=== PATIENT | female | born 1965 | race Caucasian/White ===

== ENCOUNTER 2018-05-23 06:50 | Day surgery (SDC) | payer BC ==
[~2018-05-23] VITALS: Ht 152.4 cm; Wt 54.4 kg
[~2018-05-23 06:50] MED LIST: ESTRACE0.5 MG TD; NORCO 5-325 TA1 EACH PO; PROMETRIUM200 MG PO; VALTREX500 MG PO; YUVAFEM10 MCG; ZOLOFT50 MG PO
--- NOTE | 2018-05-23 09:16 | NUR ---
05/23/18 0916 Marina Hernandez 0906 PT ARRIVED IN PACU SLEEPY WITH NO C/O'S.
--- NOTE | 2018-05-23 09:35 | NUR ---
PT IS BACK TO FROM PACU. SHE IS SLEEPY UPON ARRIVAL, BUT QUICKLY WAKES UP TO ANSWER QUESTIONS. WATER ON BEDSIDE TABLE. CALL LIGHT WITHIN REACH. NO ADDITIONAL NEEDS AT THIS TIME. WILL CONTINUE TO MONITOR.
--- NOTE | 2018-05-23 10:40 | NUR ---
PT IS SLEEPING UPON ENTERING THE ROOM. SHE IS EASY TO WAKE UP WHEN SPOKEN TOO. DENIES ANY PAIN. CALL LIGHT WITHIN REACH. TOLERATING SIPS OF WATER. NO ADDITIONAL NEEDS AT THIS TIME. WILL CONTINUE TO MONITOR.
--- NOTE | 2018-05-23 11:10 | NUR ---
PT ALERT, ORIENTED AND SOMEWHAT APPREHENSIVE I ENTERED HER RM. WE BEGAN TO VISIT, HER ANXIOUSNESS EASED A BIT. SHE IS NEW TO THE AREA, AND FELT POSITIVE ABOUT HER DR, AND HAD NO QUESTIONS REGARDING TODAY. EXTENDED A BLESSING, WILL FOLLOW NEEDED
--- NOTE | 2018-05-23 11:32 | NUR ---
PT INDICATES THAT SHE WOULD LIKE TO GO HOME AT THIS TIME. SHE HAS MET DC CRITERIA. WILL START DC PROCESS
--- NOTE | 2018-05-23 11:52 | NUR ---
PT IS GIVEN VERBAL DC INSTRUCTIONS. SHE VERBALIZES UNDERSTANDING AND ASKS QUESTIONS THAT ARE ANSWERED. SHE IS TAKEN TO THE VEHICLE VIA WC, SHE TRANSFERS HERSELF WITHOUT ISSUE.
--- NOTE | 2018-06-20 09:19 | OR ---
[facility] [address] [facility] [place], [place] [address] Signed DATE OF OPERATION: 05/23/2018 SURGEON: Justina Kam MD PREOPERATIVE DIAGNOSIS: Postmenopausal bleeding, endometrial polyps. POSTOPERATIVE DIAGNOSIS: Postmenopausal bleeding, endometrial polyps, pending pathology. PROCEDURE: Hysteroscopy dilation and curettage, resection of polyps. ANESTHESIA: General LMA. ESTIMATED BLOOD LOSS: Minimal. DRAINS: None. INDICATIONS AND FINDINGS: The patient is a 52-year-old female, 2, para 2, who has been having recent abnormal bleeding. She is on hormone replacement. Hysterosonogram revealed probable polyps. EMB was benign. At the time of surgery, exam under anesthesia revealed a normal-size uterus. The cavity did sound to 9 cm. There were multiple small polyps visible. DESCRIPTION OF PROCEDURE: The patient was prepped and draped in the dorsal lithotomy position. A weighted speculum was placed. The anterior lip of the cervix was visualized and grasped with a single-tooth tenaculum. The cavity sounded to 9 cm. The endocervical canal was then dilated to a #8 dilator. The MyoSure device was then placed. The cavity was evaluated and the MyoSure device was removed and a D and C was done with a small curette. A small amount of tissue was found. The hysteroscope was re-introduced and the cavity re-evaluated. There continued to be multiple small polyps. At that point, the MyoSure LITE was used and this was used to remove the multiple polyps. Following this, the instruments were removed from the vagina. There was no evidence of ongoing bleeding from the cervix. Electronically Signed By: JUSTINA KAM MD 06/20/18 0919 PATIENT NAME: DANIELLE COOPER OPERATIVE REPORT DATE OF : 63 REPORT #: [id number] PHYSICIAN: JUSTINA KAM MD PCP: NO PRIMARY CARE PHYSICIAN REPORT IS CONFIDENTIAL AND NOT TO BE RELEASED WITHOUT AUTHORIZATION [address], [place] [address] Signed The patient was then taken to the recovery room in good condition. Justina Kam MD PJW/MODL /[id number] Copies: ~ Electronically Signed By: JUSTINA KAM MD 06/20/18 0919 PATIENT NAME: DANIELLE COOPER OPERATIVE REPORT DATE OF : 63 REPORT #: [id number] PHYSICIAN: JUSTINA KAM MD PCP: NO PRIMARY CARE PHYSICIAN REPORT IS CONFIDENTIAL AND NOT TO BE RELEASED WITHOUT AUTHORIZATION
== END 2018-05-23 11:45 | disposition home or self-care (01) ==
LOC: DS 06:50
PROVIDERS: Obstetrics & Gynecology
PROC: 0UDB7ZZ Extraction of Endometrium, Via Natural or Artificial Opening (ICD-10-PCS; 2018-05-23)
PROC: 0UJD8ZZ Inspection of Uterus and Cervix, Via Natural or Artificial Opening Endoscopic (ICD-10-PCS; 2018-05-23)
PROC: 0UB97ZZ Excision of Uterus, Via Natural or Artificial Opening (ICD-10-PCS; principal; 2018-05-23 08:15)
DX: N84.0 Polyp of corpus uteri (principal); N95.2 Postmenopausal atrophic vaginitis; Z79.899 Other long term (current) drug therapy
CPT/HCPCS: 00952; J0461; J1100; J1885; J2250; J2405; J2704; J2765; J3010; J7120

== ENCOUNTER 2018-07-28 09:23 | Emergency (ER) | payer BC ==
[~2018-07-28] VITALS: Ht 152.4 cm; Wt 54.4 kg
--- OUTSIDE RECORDS SUMMARY | ~2018-07-28 | XMS | Clinical Summary ---
Demographics + + + | Address | [address] | | | [place] [address] | + + + | Home Phone | | + + + | Preferred Language | Unknown | + + + | Marital Status | Single | + + + | Scientologist Affiliation | Unknown | + + + | Race | Unknown | + + + | Ethnic Group | Unknown | + + + Author + + + | Author | [facility] | + + + | Organization | [facility] | + + + | Address | Unknown | + + + | Phone | Unavailable | + + + Support + + +---------+ + | Name | Relationship | Address | Phone | + + +---------+ + | No,Contacts | ECON | Unknown | | + + +---------+ + Care Team Providers + +------+ + | Care Rug Dyer Helper Name | Role | Phone | + +------+ + PP | Unavailable | + +------+ + Allergies Not on File Current Medications + + +--------+---------+------+------+-------+ | Prescription | Sig. | Disp. | Refills | Star | End | Statu | | | | | | t | Date | s | | | | | | Date | | | + + +--------+---------+------+------+-------+ | valACYclovir | Take 1 tablet by | 90 | 3 | 08/0 | | Activ | | (VALTREX) 500 MG | mouth daily. | tablet | | 7/20 | | e | | tabletIndications: | | | | 18 | | | | HSV infection | | | | | | | + + +--------+---------+------+------+-------+ | estradiol | Insert vaginally | 8 | 12 | 08/0 | | Activ | | (VAGIFEM) 10 MCG | twice weekly | tablet | | 11/10 | | e | | tabletIndications: | | | | 18 | | | | Vaginal dryness | | | | | | | + + +--------+---------+------+------+-------+ | sertraline | TAKE 1 TABLET BY | 90 | 2 | 12/0 | | Activ | | (ZOLOFT) 50 MG | MOUTH ONCE DAILY | tablet | | 07/11 | | e | | tabletIndications: | | | | 18 | | | | Anxiety | | | | | | | + + +--------+---------+------+------+-------+ Active Problems No known active problems Family History + + +------+ + | [...] | | | + +-------+ +--------+------+ + +---+---+---+ | Smokeless Tobacco: | | | | | Never Used | | | | + +---+---+---+ + + +---------+ + | Alcohol Use | Drinks/We | oz/Week | Comments | | | ek | | | + + +---------+ + | Yes | | | | + + +---------+ + + + + | Sex Assigned at | Date Recorded | | | | + + + | Not on file | | + + + Last Filed Vital Signs + + + + | Vital Sign | Reading | Time Taken | + + + + | Blood Pressure | 88/46 | 11/28/2017 10:53 AM PDT | + + + + | Pulse | 53 | 11/28/2017 10:53 AM PDT | + + + + | Temperature | - | - | + + + + | Respiratory Rate | - | - | + + + + | Oxygen Saturation | 99% | 11/28/2017 10:53 AM PDT | + + + + | Inhaled Oxygen | - | - | | Concentration | | | + + + + | Weight | 51.5 kg (113 lb 9.6 | 11/28/2017 10:53 AM PDT | | | oz) | | + + + + | Height | 152.4 cm (5') | 11/28/2017 10:53 AM PDT | + + + + | Body Mass Index | 22.19 | 11/28/2017 10:53 AM PDT | + + + + Plan [...] Screening | 5 | | | | (Mammogram) | | | | + + + + + | Colon Cancer | | | | | Screening | 5 | | | | (Colonoscopy) | | | | + + + + + | Vaccine: Zoster (1 | | | | | of 2) | 5 | | | + + + + + | Vaccine: Influenza | | | | | (Season Ended) | 9 | | | + + + + + Results Not on filefrom Last 3 Months Insurance +---------+--------+ +------+-------+ + | Payer | Benefi | Subscriber | Type | Phone | Address | | | t Plan | ID | | | | | | / | | | | | | | Group | | | | | +---------+--------+ +------+-------+ + | PREMERA | PREMER | [id number] | | | [address] [address] | | | A | [address] | | | [place], [place] | | | [place] | | | | [phone] | | | [place] | | | | | +---------+--------+ +------+-------+ + + +--------+ +--------+ + + | Guarantor Name | Accoun | Relation to | Date | Phone | Billing Address | | | t Type | Patient | of | | | | | | | | | | + +--------+ +--------+ + + | DANIELLE KOROMA | Person | Self | [birth year] | Home: | [address] | | | al/Fam | | 1966 | [phone] | [place] | | | pilar | | | [phone] | + +--------+ +--------+ + +"
--- OUTSIDE RECORDS SUMMARY | ~2018-07-28 | XMS | Clinical Summary ---
Demographics + + + | Address | [address] | | | [place] [address] | + + + | Home Phone | | + + + | Preferred Language | Unknown | + + + | Marital Status | Single | + + + | Christianity Affiliation | Unknown | + + + | Race | Unknown | + + + | Ethnic Group | Unknown | + + + Author + + + | Author | [facility] | + + + | Organization | [facility] | + + + | Address | Unknown | + + + | Phone | Unavailable | + + + Support + + +---------+ + | Name | Relationship | Address | Phone | + + +---------+ + | No,Contacts | ECON | Unknown | | + + +---------+ + Care Team Providers + +------+ + | Care Fine Grade Operator Name | Role | Phone | + [...] +------+-------+ + | PREMERA | PREMER | [id number] | | | [address] [address] | | | A | [address] | | | [place], [place] | | | [place] | | | | [phone] | | | [place] | | | [...] | | al/Fam | | 1966 | [phone] | [place] | | | pilar | | | 2011 | [phone] | + +--------+ +--------+ + +"
--- OUTSIDE RECORDS SUMMARY | 2018-07-28 09:26 | XMS ---
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 Heriberto has no Care Guidelines for this patient. Michael VISIT COUNT (12 MO.) 2 [facility] TOTAL 2 NOTE: Visits indicate total known visits. ED/UCC VISIT TRACKING (12 MO.) 07/28/2018 09:23 [facility] [place] TYPE: Emergency COMPLAINT: - DIZZY 04/15/2018 22:12 [facility] [place] TYPE: Emergency COMPLAINT: - LEFT FOOT INJURY DIAGNOSES: - Striking against or struck by other objects, initial encounter - Pain in left toe(s) - Nondisplaced fracture of proximal phalanx of left lesser toe(s), initial encounter for closed fracture - Other fpc (current) drug therapy INPATIENT VISIT TRACKING (12 MO.) No inpatient visits to display in this time frame [email or web address]
[2018-07-28] MEDS ORDERED: MECLIZINE HCL25 MG PO (11:42)
[2018-07-28] MEDS ORDERED: ONDANSETRON ODT8 MG PO (11:42)
== END 2018-07-28 11:50 | disposition home or self-care (01) ==
LOC: ED 09:23
DX: H83.09 Labyrinthitis, unspecified ear (principal); Z87.891 Personal history of nicotine dependence; Z79.899 Other long term (current) drug therapy
CPT/HCPCS: 99283

== ENCOUNTER 2019-02-15 02:59 | Inpatient (IN) | payer BC ==
[~2019-02-15] VITALS: Ht 152.4 cm; Wt 50.9 kg
--- NOTE | ~2019-02-15 | DS ---
[facility] [address] [place], [place] [address] Draft ADMISSION DATE: 02/15/2019 DISCHARGE DATE: 02/17/2019 FINAL DIAGNOSIS: Acute suppurative appendicitis. PROCEDURE: Laparoscopic appendectomy. 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 She stays in excellent shape by exercising and lifting weights. Over three days, she was having right-sided abdominal pain. It seemed to be getting worse. She had some nausea, vomiting as well. She had been to the urgent care clinic the day prior to admission. Due to her ongoing symptoms, she presented to the emergency room. She was tender on the right side with a white count of 10.5. The CT scan showed an appendicolith with a dilated appendix and some trent-appendiceal inflammation with the appendix in the right gutter up near the edge of the liver. Consequently, I have been asked to admit her overnight as a general surgeon on-call. HOSPITAL COURSE: Danielle was admitted as above and started on IV med, IV fluids, antibiotics, and her pain medication. I met with Danielle and her friend early in the morning. I later met with Danielle and her mother in our day surgery area. Later that day, we had added Danielle on with respect to her appendicitis. She underwent an uncomplicated laparoscopic appendectomy. Indeed, the appendix was clear up next to the gallbladder. She did well both intraop and postop. She was a little dehydrated coming in, but she caught up in due time and continued IV fluids and p.o. intake. We left her on the cefepime and Flagyl while here in the hospital. Last night, her IV was bothering her, so we discontinued IV and the antibiotics last night. She has been taking a regular diet just fine with plenty of flatus. She has been using hydrocodone for pain control. Her abdomen is still mildly distended. She has a little bit of edema and her skin on the right side of her abdomen down on the proximal thigh. There was a moderate amount of reactive fluid in her abdomen when we did her surgery. All incisions are healing well without any local signs or symptoms of infection. Due to her progress, then we are going to be discharging her to home. DISCHARGE PLANS AND MEDICATIONS: Danielle is going to be discharged to home with a prescription for [place] 5/325, 1-2 tablets p.o. q.6 hours p.r.n. for severe postoperative pain. We will dispense 35 tablets with no refills. She can purchase Tylenol, ibuprofen, or naproxen over the PATIENT NAME: DANIELLE COOPER DISCHARGE SUMMARY DATE OF : 63 REPORT #: [id number] PHYSICIAN: JEROD BAILEY MD PCP: NO PRIMARY CARE PHYSICIAN REPORT IS CONFIDENTIAL AND NOT TO BE RELEASED WITHOUT AUTHORIZATION [address] [address] Draft counter for cegd-eg-wubkwhzu postoperative pain as needed. She is already taking her chronic oral medications now. She can continue that at home. She will follow a regular diet at home. She is not to do any heavy pushing, pulling, or lifting over 20 pounds. She likes to lift weights for exercise. We went over that in detail. She really should not lift more than about 20 pounds for a month, and then after that, 50 pounds and then no restrictions. There is a 1% chance she could develop a hernia particularly at the umbilicus after surgery. I reviewed that with her in detail. If she tears the sutures through, of course it would be quite obvious at that time. She can continue her showering and bathing as usual. 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 She can lay down and so forth. I will see her back in my office in a week to 10 days for followup. She has expressed understanding and agrees above plan. Jerod Bailey MD ALB/MODL /[id number] cc: MD Aurea Amaro NP [place], [place] Patricia J Winn, MD Copies: KARLA GARNER ANDREW L MD WINN, PATRICIA J MD ~ PATIENT NAME: DANIELLE COOPER DISCHARGE SUMMARY DATE OF : 63 REPORT #: [id number] PHYSICIAN: JEROD BAILEY MD PCP: NO PRIMARY CARE PHYSICIAN REPORT IS CONFIDENTIAL AND NOT TO BE RELEASED WITHOUT AUTHORIZATION
--- OUTSIDE RECORDS SUMMARY | ~2019-02-15 | XMS | Clinical Summary ---
Demographics + + + | Address | [address] | | | [place] [address] | + + + | Home Phone | | + + + | Preferred Language | Unknown | + + + | Marital Status | Single | + + + | Restoration Affiliation | Unknown | + + + | Race | Unknown | + + + | Ethnic Group | Unknown | + + + Author + + + | Author | [facility] | | | and [place] | + + + | Organization | [facility] | | | and [place] | + + + | Address | Unknown | + + + | Phone | Unavailable | + + + Support + + +---------+ + | Name | Relationship | Address | Phone | + + +---------+ + | No,Contacts | ECON | Unknown | | + + +---------+ + Care Team Providers + +------+ + | Care Warehouse Administrator Name | Role | Phone | + +------+ + PCP | Unavailable | + +------+ + Allergies Not on File Medications + + + +---------+------+------+-------+ | Medication | Sig | Dispensed | Refills | Star | End | Statu | | | | | | t | Date | s | | | | | | Date | | | + + + +---------+------+------+-------+ | estradiol | Insert vaginally | 8 | 12 | 08/0 | | Activ | | (VAGIFEM) 10 mcg | twice weekly | tablet | | 7/20 | | e | | vaginal tablet | | | | 18 | | | + + + +---------+------+------+-------+ | sertraline | TAKE 1 TABLET BY | 90 | 2 | 12/0 | | Activ | | (ZOLOFT) 50 mg | MOUTH ONCE DAILY | tablet | | 3/20 | | e | | tablet | | | | 18 | | | + + + +---------+------+------+-------+ | valACYclovir | TAKE 1 TABLET BY | 30 | 11 | 08/1 | | Activ | | (VALTREX) 500 mg | MOUTH ONCE DAILY | tablet | | 2/20 | | e | | tablet | | | | 19 | | | + + + +---------+------+------+-------+ Active Problems Not on file Encounters +--------+ + + + + | Date | Type | Specialty | Care Team | Description | +--------+ + + + + | 12/03/ | Orders Only | Obstetrics and | Aurea Glasgow ARNP | | | 2019 | | Gynecology | | | +--------+ + + + + from Last 3 Months Family History + + +------+ + | Medical History | Relation | Name | Comments | + + +------+ + | Thyroid disease | Mother | | | + + +------+ + + +------+ + + | Relation | Name | Status | Comments | + +------+ + + | Father | | | | + +------+ + + | Maternal Grandfather | | | | + +------+ + + | Maternal Grandmother | | | | + +------+ + + | Mother | | Alive | | + +------+ + + | Mother | | | | + +------+ + + | Paternal Grandfather | | | | + +------+ + + | Paternal Grandmother | | | | + +------+ + + Social History + +-------+ +--------+------+ | Tobacco Use | Types | Packs/Day | Years | Date | | | | | Used | | + +-------+ +--------+------+ | Never Smoker | | | | | + +-------+ +--------+------+ + + + | Sex Assigned at | Date Recorded | | | | + + + | Not on file | | + + + + + + + | Job Start Date | Occupation | Industry | + + + + | Not on file | Not on file | Not on file | + + + + + + + + | Travel History | Travel Start | Travel End | + + + + + + | No recent travel history available. | + + Last Filed Vital Signs + + + + | Vital Sign | Reading | Time Taken | + + + + | Blood Pressure | 88/46 | 11/28/2017 1055 PDT | + + + + | Pulse | 53 | 11/28/2017 1055 PDT | + + + + | Temperature | - | - | + + + + | Respiratory Rate | - | - | + + + + | Oxygen Saturation | - | - | + + + + | Inhaled Oxygen | - | - | | Concentration | | | + + + + | Weight | 51.5 kg (113 lb 9.6 | 11/28/20171054 PDT | | | oz) | | + + + + | Height | 152.4 cm (5') | 11/28/20171054 PDT | + + + + | Body Mass Index | 22.19 | 11/28/20171054 PDT | + + + + Plan of Treatment + + + + + | Health Maintenance | Due Date | Last Done | Comments | + + + + + | Hepatitis C | | | | | Screening | 5 | | | + + + + + | Vaccine: | | | | | Dtap/Tdap/Td (1 - | 4 | | | | Tdap) | | | | + + + + + | Cervical Cancer | | | | | Screening (Pap) | 5 | | | + + + + + | Breast Cancer | | | | | Screening | 0 | | | + + + + + | Colorectal Cancer | | | | | Screening | 5 | | | | (Colonoscopy) | | | | + + + + + | Vaccine: Zoster (1 | | | | | of 2) | 5 | | | + + + + + | Vaccine: Influenza | | | | | (#1) | 9 | | | + + + + + Results Not on filefrom Last 3 Months"
--- OUTSIDE RECORDS SUMMARY | ~2019-02-15 | XMS | Encounter Summary ---
Demographics + + + | Address | [address] | | | [place] [address] | + + + | Home Phone | | + + + | Preferred Language | Unknown | + + + | Marital Status | Single | + + + | Gnosticism Affiliation | Unknown | + + + | Race | Unknown | + + + | Ethnic Group | Unknown | + + + Author + + + | Author | [facility] | | | and [place] | + + + | Organization | [facility] | | | [...] Team Providers + +------+ + | Care Vp Platforms Name | Role | Phone | + +------+ + PCP | Unavailable | + +------+ + Encounter Details +--------+ + + + + | Date | Type | Department | Care Team | Description | +--------+ + + + + | 12/03/ | Orders Only | [facility] | Aurea Glasgow ARNP | | | 2019 | | [facility] | [address] | | | | | [facility] | [address], | | | | | [address] | [place] [address] | | | | | [address], | [phone] | | | | | [place] [address] | | | | | | [phone] | | | +--------+ + + + + Social History + +-------+ +--------+------+ [...] recent travel history available. | + + documented as of this encounter Plan of Treatment Not on filedocumented as of this encounter Visit Diagnoses Not on filedocumented in this encounter"
--- OUTSIDE RECORDS SUMMARY | ~2019-02-15 | XMS | Clinical Summary ---
Demographics + + + | Address | [address] | | | [place] [address] | + + + | Home Phone | | + + + | Preferred Language | Unknown | + + + | Marital Status | Single | + + + | Gnosticism Affiliation | Unknown | + + + | Race | Unknown | + + + | Ethnic Group | Unknown | + + + Author + + + | Author | [facility] | | | and [place] | + + + | Organization | [facility] | | | and [...] Team Providers + +------+ + | Care Painter Helper Name | Role | Phone | [...]
--- OUTSIDE RECORDS SUMMARY | ~2019-02-15 | XMS | Encounter Summary ---
Demographics + + + | Address | [address] | | | [place] [address] | + + + | Home Phone | | + + + | Preferred Language | Unknown | + + + | Marital Status | Single | + + + | Cheondoism Affiliation | Unknown | + + + | Race | Unknown | + + + | Ethnic Group | Unknown | + + + Author + + + | Author | [employer] (Historical as of | | | 12-08-18) | + + + | Organization | [facility] [employer] (Historical as of | | | 12-08-18) | + + + | Address | Unknown | + + + | Phone | Unavailable | + + + Support + + +---------+ + | Name | Relationship | Address | Phone | + + +---------+ + | No,Contacts | ECON | Unknown | | + + +---------+ + Care Team Providers + +------+ + | Care Automatic Line Set Up Mechanic Name | Role | Phone | + +------+ + PCP | Unavailable | + +------+ + Reason for Visit + + + | Reason | Comments | + + + | Medication Refill | | + + + Encounter Details +--------+--------+ + + + | Date | Type | Department | Care Team | Description | +--------+--------+ + + + | 11/30/ | Refill | [facility] | Delmar Aguilar, | HSV infection | | 2019 | | Associated | [address] | | | | | [facility] | [address] [place], | | | | | [address], | [place] [address] | | | | | [address] [place], | [phone] | | | | | [place] [address] | | | | | | [phone] | | | +--------+--------+ + + + Social History + +-------+ [...] on file | | + + + as of this encounter Plan of Treatment Not on fileas of this encounter Visit Diagnoses + + | Diagnosis | + + | HSV infection | + + | Herpes simplex without mention of complication | + +"
--- OUTSIDE RECORDS SUMMARY | ~2019-02-15 | XMS | Encounter Summary ---
Demographics + + + | Address | [address] | | | [place] [address] | + + + | Home Phone | | + + + | Preferred Language | Unknown | + + + | Marital Status | Single | + + + | Mu-Ism Affiliation | Unknown | + + + | Race | Unknown | + + + | Ethnic Group | Unknown | + + + Author + + + | Author | [employer] (Historical as of | | | 12-08-18) | + + + | Organization | [facility] [employer] (Historical as of | | | 12-08-18) [...] Team Providers + +------+ + | Care Race Engine Builder Name | Role | Phone | + [...] + + | 11/30/ | Refill | [facility] | Delmar Aguilar, | HSV infection | | 2019 | | Associated | [address] | | | | | [facility] | [address] [place], | | | | | [address], | [place] [address] | | | | | [address] [place], | [phone] | | | | | [place] [address] | | | | | | [phone] | | | +--------+--------+ + + + [...]
--- OUTSIDE RECORDS SUMMARY | ~2019-02-15 | XMS | Encounter Summary ---
Demographics + + + | Address | [address] | | | [place] [address] | + + + | Home Phone | | + + + | Preferred Language | Unknown | + + + | Marital Status | Single | + + + | Yarsani Affiliation | Unknown | + + + | Race | Unknown | + + + | Ethnic Group | Unknown | + + + Author + + + | Author | [facility] | | | and [place] | + + + | Organization | [facility] | | | [...] Team Providers + +------+ + | Care Loss Prevention Representative Name | Role | Phone | + +------+ + PCP | Unavailable | + +------+ + Encounter Details +--------+ + + + + | Date | Type | Department | Care Team | Description | +--------+ + + + + | 12/03/ | Orders Only | [facility] | Aurea Glasgow ARNP | | | 2019 | | ASSOCIATED | [address] | | | | | [facility] | [address] [place], | | | | | [address] | [place] [address] | | | | | [address] [place], | [phone] | | | | | [place] [address] | | | | | | [phone] | | | +--------+ + + + [...]
--- OUTSIDE RECORDS SUMMARY | ~2019-02-15 | XMS | Clinical Summary ---
Demographics + + + | Address | [address] | | | [place] [address] | + + + | Home Phone | | + + + | Preferred Language | Unknown | + + + | Marital Status | Single | + + + | Restorationist Affiliation | Unknown | + + + | Race | Unknown | + + + | Ethnic Group | Unknown | + + + Author + + + | Author | [employer] (Historical as of | | | 12-08-18) | + + + | Organization | [facility] [employer] (Historical as of | | | 12-08-18) [...] Team Providers + +------+ + | Care Sewing Machine Tester Name | Role | Phone | + [...] | 3/20 | | e | | tabletIndications: | | | | 18 | | | | Anxiety | | | | | | | + + +--------+---------+------+------+-------+ | valACYclovir | TAKE 1 TABLET BY | 30 | 11 | 08/1 | | Activ | | (VALTREX) 500 MG | MOUTH ONCE DAILY | tablet | | 2/20 | | e | | tabletIndications: | | | | 19 | | | | HSV infection | | | | | | | + + +--------+---------+------+------+-------+ Active Problems No known active problems Encounters +--------+--------+ + + + | Date | Type | Specialty | Care Team | Description | +--------+--------+ + + + | 11/30/ | Refill | | Delmar Aguilar, | HSV infection | | 2019 | | | PA-C | | +--------+--------+ + + + from Last 3 Months [...] +------+-------+ + | PREMERA | PREMER | [id number] | | | [address] [address] | | | A | [address] | | | [place] | | | [place] | | | | [phone] | | | [place] | | | [...] Self | [birth year] | Home: | [address] | | | al/Fam | | 1966 | [phone] [place] | | | [place] | | | [phone] | [phone] | + +--------+ +--------+ + +"
--- OUTSIDE RECORDS SUMMARY | ~2019-02-15 | XMS | Encounter Summary ---
Demographics + + + | Address | [address] | | | [place] [address] | + + + | Home Phone | | + + + | Preferred Language | Unknown | + + + | Marital Status | Single | + + + | Episcopalian Affiliation | Unknown | + + + | Race | Unknown | + + + | Ethnic Group | Unknown | + + + Author + + + | Author | [facility] | | | and [place] | + + + | Organization | [facility] | | | and [...] Team Providers + +------+ + | Care Moss Picker Name | Role | Phone | + +------+ + PCP | Unavailable | + +------+ + Encounter Details +--------+ + + + + | Date | Type | Department | Care Team | Description | +--------+ + + + + | 12/03/ | Orders Only | [facility] | Aurea Glasgow ARNP | | | 2019 | | ASSOCIATED | [address] | | | | | [facility] | [address] [place], | | | | | [address] | [place] [address] | | | | | [address] [place], | [phone] | | | | | [place] [address] | | | | | | [phone] | | | +--------+ + + + [...]
--- OUTSIDE RECORDS SUMMARY | ~2019-02-15 | XMS | Clinical Summary ---
Demographics + + + | Address | [address] | | | [place] [address] | + + + | Home Phone | | + + + | Preferred Language | Unknown | + + + | Marital Status | Single | + + + | Catholic Affiliation | Unknown | + + + | Race | Unknown | + + + | Ethnic Group | Unknown | + + + Author + + + | Author | [facility] | | | and [place] | + + + | Organization | [facility] | | | [...] Team Providers + +------+ + | Care Print Shop Chief Clerk Name | Role | Phone | + [...]
--- OUTSIDE RECORDS SUMMARY | ~2019-02-15 | XMS | Clinical Summary ---
Demographics + + + | Address | [address] | | | [place] [address] | + + + | Home Phone | | + + + | Preferred Language | Unknown | + + + | Marital Status | Single | + + + | Caodaism Affiliation | Unknown | + + + | Race | Unknown | + + + | Ethnic Group | Unknown | + + + Author + + + | Author | [employer] (Historical as of | | | 12-08-18) | + + + | Organization | [facility] [employer] (Historical as of | | | 12-08-18) [...] Team Providers + +------+ + | Care Launch Leader Name | Role | Phone | + [...] +------+-------+ + | PREMERA | PREMER | [id number] | | | [address] [address] | | | A | [address] | | | [place] | | | [place] | | | | [address] | | | [place] | | | [...] | [place] | | | [phone] | [phone] | + +--------+ +--------+ + +"
--- OUTSIDE RECORDS SUMMARY | ~2019-02-15 | XMS | Encounter Summary ---
Demographics + + + | Address | [address] | | | [place] [address] | + + + | Home Phone | | + + + | Preferred Language | Unknown | + + + | Marital Status | Single | + + + | Methodist Affiliation | Unknown | + + + | Race | Unknown | + + + | Ethnic Group | Unknown | + + + Author + + + | Author | [employer] (Historical as of | | | 12-08-18) | + + + | Organization | [facility] [employer] (Historical as of | | | 12-08-18) [...] Team Providers + +------+ + | Care Studio Owner Name | Role | Phone | + [...] + + | 11/30/ | Refill | [facility] | Delmar Aguilar, | HSV infection | | 2019 | | Associated | [address] | | | | | [facility] | [address] [place], | | | | | [address], | [place] [address] | | | | | [address] [place], | [phone] | | | | | [place] [address] | | | | | | [phone] | | | +--------+--------+ + + + [...]
--- OUTSIDE RECORDS SUMMARY | ~2019-02-15 | XMS | Clinical Summary ---
Demographics + + + | Address | [address] | | | [place] [address] | + + + | Home Phone | | + + + | Preferred Language | Unknown | + + + | Marital Status | Single | + + + | Yarsani Affiliation | Unknown | + + + | Race | Unknown | + + + | Ethnic Group | Unknown | + + + Author + + + | Author | [employer] (Historical as of | | | 12-08-18) | + + + | Organization | [facility] [employer] (Historical as of | | | 12-08-18) [...] Team Providers + +------+ + | Care Shelter Supervisor Name | Role | Phone | + [...] +------+-------+ + | PREMERA | PREMER | [id number] | | | [address] [address] | | | A | [address] | | | [place] | | | [place] | | | | [address] | | | [place] | | | [...] | [place] | | | [phone] | [address] | + +--------+ +--------+ + +"
[~2019-02-15 02:59] MED LIST changes: +MECLIZINE HCL25 MG PO; +ONDANSETRON ODT8 MG PO
--- OUTSIDE RECORDS SUMMARY | 2019-02-15 03:02 | XMS ---
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 Heriberto has no Care Guidelines for this patient. Care History Medical/Surgical 07/31/2018 [facility] - PATIENT DOES NOT HAVE A PCP- [facility] IS UNABLE TO CONTACT PATIENT DUE TO THE CONTACT NUMBER LISTED IS NO LONGER IN SERVICE. - PLEASE HAVE PATIENT BE SEEN AT THE WALK IN CLINIC FOR NON EMERGENT MEDICAL NEEDS. - PLEASE PROVIDE [facility] CONTACT NUMBER [phone] IF PATIENT IS SEEN IN THE ED. - NO PCP LETTER HAS BEEN SENT TO PATIENT. E.D. VISIT COUNT (12 MO.) 3 [facility] TOTAL 3 NOTE: Visits indicate total known visits. ED/UCC VISIT TRACKING (12 MO.) 02/15/2019 02:[address] [facility] [place] TYPE: Emergency COMPLAINT: - ABD PAIN 07/28/2018 09:[address] [facility] [place] TYPE: Emergency COMPLAINT: - DIZZY DIAGNOSES: - Personal history of nicotine dependence - Labyrinthitis, unspecified ear - Other nursing home (current) drug therapy - Dizziness and giddiness 04/15/2018 22:[address] [facility] [place] TYPE: Emergency COMPLAINT: - LEFT FOOT INJURY DIAGNOSES: - Striking against or struck by other objects, init encntr - Pain in left toe(s) - Nondisp fx of proximal phalanx of left lesser toe(s), init - Other nursing home (current) drug therapy INPATIENT VISIT TRACKING (12 MO.) No inpatient visits to display in this time frame [email or web address]
--- NOTE | 2019-02-15 12:27 | CONS ---
[facility] [address] [place], [place] [address] Signed DATE OF CONSULTATION: 02/15/2019 CHIEF COMPLAINT: Right lower quadrant abdominal pain. HISTORY OF PRESENT ILLNESS: This is a 53-year-old female who exercises frequently and is in very good shape. She said, in the last three days, she has had increasing right lower quadrant and right-sided abdominal pain. She had been to the Urgent Care Clinic yesterday. Initially, it was just bloating, so we thought maybe she had some viral gastroenteritis. However, the pain continued. She came to emergency room last night. In the emergency room, her vital signs were fine, but she was certainly tender along the right side of her abdomen. White count was borderline at 10.5. CT scan of abdomen and pelvis shows that she has appendicolith with a very dilated appendix lying up along the right gutter with the tip near the liver. Consequently, I was asked to admit her as a general surgeon on-call. In the meantime, she has received IV fluids and/or antibiotics, cefepime and Flagyl. She is just now coming down to our Medical-Surgical Floor. PAST MEDICAL HISTORY: Uterine polyps, right wrist fracture at age 15, and hepatitis C virus. PAST SURGICAL HISTORY: Bilateral tubal ligation and a x2. SOCIAL HISTORY: She quit smoking. She drinks occasionally. She is single, but lives with her mom. She has 2 children. She continues to drive. 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 Dr. Justina Kam is her dry folder cloth. She has no family medicine doctor. She prefers the [facility]. FAMILY HISTORY: Dad had diabetes. Mom has thyroid disease. REVIEW OF SYSTEMS: Danielle had 10 systems reviewed and she mentioned her right wrist fractured at age 15 when she fell off a trampoline. It did not require surgery. ALLERGIES: None. MEDICATIONS: Estrace, Valtrex, Zoloft, Prometrium, and estradiol. Electronically Signed By: JEROD BAILEY MD 02/15/19 1227 PATIENT NAME: DANIELLE COOPER CONSULTATION DATE OF : 63 REPORT #: [id number] PHYSICIAN: JEROD BAILEY MD PCP: NO PRIMARY CARE PHYSICIAN REPORT IS CONFIDENTIAL AND NOT TO BE RELEASED WITHOUT AUTHORIZATION [facility] [address] [place], [place] [address] Signed PHYSICAL EXAMINATION: VITAL SIGNS: Blood pressure is 106/56, heart rate is 54, respiratory rate 16, temperature is 98.8. She is 97%. She is 5 feet tall at 50 kg. GENERAL: Danielle is a 53-year-old female, lying supine in her hospital bed. The nurse and her friend are in the room. She does not appear systemically ill or toxic. She seems a little tired. She has had some Dilaudid, but it is starting to wear off. LUNGS: Clear to auscultation bilaterally. HEART: Bradycardic and quite strong. There are no murmurs. ABDOMEN: Soft and flat. She is tender along the right side of her abdomen. She is very delong from head to toe. LABORATORY DATA: Her white blood cell count is 10.5, mean cell volume is 104, hemoglobin is 12, neutrophils 82, BUN 19, creatinine 0.8. Liver function tests are negative. Lipase is negative. Albumin is 4.2. RADIOGRAPHIC STUDIES: The CT scan of the abdomen and pelvis is reviewed along with the report. She clearly has a very dilated appendix with a stone all along the right side of her abdomen up to the edge of the liver. There was periappendiceal inflammation and a little bit of fluid, but no obvious abscess or free air. ASSESSMENT AND PLAN: Danielle is a 53-year-old female who presents with appendicitis. She has been admitted, given IV fluids and antibiotics. I reviewed all the findings with her in great detail. We have reviewed the location and function of the appendix, particularly with respect to her CT scan findings. I have discussed with her in detail the difference between laparoscopic and an open appendectomy. Given her CT scan findings, we would need a vertical incision if we were going to convert her to open. We have also reviewed the expected intraop and postop course. She understands she may need to be n.p.o. for a few days until her infection and her intestines recover. She understands there is risk to that surgery including, but not limited to bleeding, infection, scarring, change in contour of the skin, damage to bowel, appendiceal stump leak, postoperative intraabdominal abscess, incisional hernias and other unforeseen comorbidities. She has expressed understanding and would like to proceed. Jerod Bailey MD ALB/MODL /[id number] Electronically Signed By: JEROD BAILEY MD 02/15/19 1227 PATIENT NAME: DANIELLE COOPER CONSULTATION DATE OF : 63 REPORT #: [id number] PHYSICIAN: JEROD BAILEY MD PCP: NO PRIMARY CARE PHYSICIAN REPORT IS CONFIDENTIAL AND NOT TO BE RELEASED WITHOUT AUTHORIZATION [place] [address] [place] [address] Signed cc: MD Justina Miller MD Copies: JEROD BAILEY MD, PATRICIA J MD ~ Electronically Signed By: JEROD BAILEY MD 02/15/19 1227 PATIENT NAME: DANIELLE COOPER CONSULTATION DATE OF : 63 REPORT #: [id number] PHYSICIAN: JEROD BAILEY MD PCP: NO PRIMARY CARE PHYSICIAN REPORT IS CONFIDENTIAL AND NOT TO BE RELEASED WITHOUT AUTHORIZATION
--- NOTE | 2019-02-16 06:11 | OR ---
[facility] [address] [place], [place] [address] Signed DATE OF OPERATION: 02/15/2019 SURGEON: Jerod Bailey MD PREOPERATIVE DIAGNOSIS: Acute appendicitis. POSTOPERATIVE DIAGNOSIS: Acute suppurative appendicitis. PROCEDURE: Laparoscopic appendectomy. ESTIMATED BLOOD LOSS: None. FINDINGS: Danielle indeed had a large appendicolith in the midportion of the appendix. Indeed, the appendix measured about 13 mm in diameter. It was in the right gutter medially adjacent to the gallbladder. She had a moderate amount of reactive fluid in the right gutter and in the pelvis. INDICATIONS: Danielle is a 53-year-old female, keeps herself in excellent shape by exercising on a regular basis. She has very little body fat and her heart rate is actually in the 40s. The last three days, she has not been feeling well with what she felt was right-sided if not right lower quadrant abdominal pain. She felt bloated, had been to the urgent care clinic the day before. Her pain continues, so she went to the emergency room last night. Her white count was actually borderline at 10.5 with neutrophils 82. Rest of her labs were fine. She was tender on that right side on exam. Consequently, she had a CT scan of the abdomen and pelvis performed. Sure enough, her appendix was lying in the right gutter up next to the gallbladder in the edge of the liver. She has a stone in the midportion of the appendix. The appendix was dilated around 13 mm. There were some reactive changes in that trent-appendiceal area. I was called by the ER physician about 15 minutes to 0500. We went ahead and gave her cefepime and Flagyl and some pain control, admitted to the hospital. I saw her the last 6:00 a.m. I had met with Danielle and a friend of hers. We reviewed the above findings in detail. I reviewed with her the location and function of the appendix. In her case it happens to be up near the edge of the liver in her gallbladder. I reviewed with them the difference between a laparoscopic and an open appendectomy. I later reviewed this with Danielle's mother as Electronically Signed By: JEROD BAILEY MD 02/16/19 0611 PATIENT NAME: DANIELLE COOPER OPERATIVE REPORT DATE OF : 63 REPORT #: [id number] PHYSICIAN: JEROD BAILEY MD PCP: NO PRIMARY CARE PHYSICIAN REPORT IS CONFIDENTIAL AND NOT TO BE RELEASED WITHOUT AUTHORIZATION [facility] [address] [place], [place] [address] Signed well in our preop area. I explained 97% of the time we will get the appendix out with our laparoscopic equipment. The other 3% requires an open incision. We reviewed the expected intraop and postop course. It generally depends on the amount of infection in the abdomen. 1-3 days common but 5-7 even 10 days is not completely uncommon depending on the amount of infection. We also reviewed the risks including, but not limited to bleeding, infection, scarring, change in contour of the skin, damage to bowel, appendiceal stump leak, postoperative intra-abdominal abscess, incisional hernias, and other unforeseen comorbidities. They had expressed understanding and wished to proceed. PROCEDURE NOTE: After talking with Danielle and her mother in our preop area and answering their questions in detail, we proceeded to the operating room. Danielle was placed in the supine position under general endotracheal tube anesthesia. She was already on cefepime and Flagyl. We gave her another dose of Flagyl as we were working. A Valenzuela catheter was inserted with return of clear yellow urine without difficulty. She was already on preoperative Lovenox along with her SCDs. She was then prepped and draped in the usual sterile fashion. After this, a short vertical incision was made above the umbilicus and carried down through the tissue bluntly with the cautery. We placed our Dorys trocar under direct visualization without difficulty. We could see the cecum in the anterior taenia coli in the right upper quadrant. The gallbladder and liver were evident as well along with reactive fluid in the right gutter and down in the pelvis. We had taken pictures throughout the procedure for photodocumentation. We then placed our standard 5 mm suprapubic trocar site under direct visualization without difficulty. Similarly, we placed our right subcostal 12 mm trocar under direct visualization without difficulty. We carefully and slowly brought the appendix up with careful blunt dissection and judicious cautery until it was mobilized away from the right gutter and up into the operative field. Fortunately, the tip of the appendix was not adherent. It took a few minutes to very slowly and carefully work our way through the base of the appendix next to the cecum. We divided the cecum from the appendix with the help of the linear stapler. We then divided the mesoappendix with our vascular load on the linear stapler. All hemostasis was excellent on both staple lines. The appendix was then placed into an EndoCatch bag and taken out through the right subcostal trocar site. This was then closed with interrupted 0 Vicryl suture with the help of our laparoscopic suturing device. All the gas was allowed to escape and the remaining trocars were removed. We passed the appendix off the field to our circulating nurse and additional picture was taken for photodocumentation. We then closed the fascia of the supraumbilical trocar site with interrupted simple and jolazx-ix-nears 0 Vicryl sutures. Local anesthetic was copiously injected into all three trocar sites. Each trocar site was irrigated and suctioned out until clear. We closed the dermis of each trocar site with interrupted 3-0 subcuticular Monocryl sutures. Danielle has a previous Pfannenstiel incision for her two C-sections. Consequently that skin was apart just a little bit so we closed that with a 5-0 fast absorbing plain gut running suture. Dry gauze and tape were then Electronically Signed By: JEROD BAILEY MD 02/16/19 0611 PATIENT NAME: DANIELLE COOPER OPERATIVE REPORT DATE OF : 63 REPORT #: [id number] PHYSICIAN: JEROD BAILEY MD PCP: NO PRIMARY CARE PHYSICIAN REPORT IS CONFIDENTIAL AND NOT TO BE RELEASED WITHOUT AUTHORIZATION [address] [address] Signed applied to all incisions. We left Danielle's Valenzuela catheter in place. She was awakened from her anesthesia, extubated in the OR, and taken to recovery room in stable condition. MD JEFF Miller/LINL /[id number] cc: ZANDER [place] Andrew L Bower, MD Patricia J Winn, MD Copies: KARLA GARNER ANDREW L MD WINN, PATRICIA J MD ~ Electronically Signed By: JEROD BAILEY MD 02/16/19 0611 PATIENT NAME: DANIELLE COOPER OPERATIVE REPORT DATE OF : 63 REPORT #: [id number] PHYSICIAN: JEROD BAILEY MD PCP: NO PRIMARY CARE PHYSICIAN REPORT IS CONFIDENTIAL AND NOT TO BE RELEASED WITHOUT AUTHORIZATION
--- NOTE | 2019-02-16 08:07 | EKG ---
[facility] [address] [facility] [place], [place] [address] Signed Sinus bradycardia Low voltage QRS Cannot rule out Anterior infarct , age undetermined Abnormal ECG No previous ECGs available Confirmed by MARILEE ROSARIO MD ([id number]) on 02/16/2019 8:06:54 AM Electronically Signed By: MARILEE ROSARIO MD 02/16/19 0807 PATIENT NAME: DANIELLE COOPER Electrocardiogram DATE OF : 63 PHYSICIAN: MARILEE ROSARIO MD REPORT #: [id number] REPORT IS CONFIDENTIAL AND NOT TO BE RELEASED WITHOUT AUTHORIZATION
[2019-02-17] MEDS ORDERED: NORCO 5-325 TA1 EACH PO (07:59)
== END 2019-02-17 14:00 | disposition home or self-care (01) | DRG 343 ==
LOC: ED 02:59 → MS 03:00
PROVIDERS: ADMIT Colon & Rectal Surgery
PROC: 0DTJ4ZZ Resection of Appendix, Percutaneous Endoscopic Approach (ICD-10-PCS; principal; 2019-02-15 12:30)
DX: K35.80 Unspecified acute appendicitis (principal); K38.1 Appendicular concretions; Z87.891 Personal history of nicotine dependence; Z86.19 Personal history of other infectious and parasitic diseases; Z79.899 Other long term (current) drug therapy; Z79.890 Hormone replacement therapy
CPT/HCPCS: 00840; 74177; 80053; 83690; 85025; 96376; 99285-25; C9113; G0378; J0330; J0692; J1100; J1170; J1650; J1885; J2250; J2405; J2704; J7030; J7060; J7121; Q9967

== ENCOUNTER 2021-04-16 17:53 | Emergency (ER) | payer BC ==
[~2021-04-16] VITALS: Ht 152.4 cm; Wt 53.1 kg
--- OUTSIDE RECORDS SUMMARY | 2021-04-16 18:00 | XMS ---
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 Heriberto has no Care Guidelines for this patient. Care History Medical/Surgical 07/31/2018 [facility] - PATIENT DOES NOT HAVE A PCP- [facility] IS UNABLE TO CONTACT PATIENT DUE TO THE CONTACT NUMBER LISTED IS NO LONGER IN SERVICE. - PLEASE HAVE PATIENT BE SEEN AT THE WALK IN CLINIC FOR NON EMERGENT MEDICAL NEEDS. - PLEASE PROVIDE [facility] CONTACT NUMBER [phone] IF PATIENT IS SEEN IN THE ED. - NO PCP LETTER HAS BEEN SENT TO [place]. Michael VISIT COUNT (12 MO.) 1 [facility] TOTAL 1 NOTE: Visits indicate total known visits. ED/UCC VISIT TRACKING (12 MO.) 04/16/2021 17:54 [facility]respo [place] TYPE: Emergency COMPLAINT: - BODY ACHES INPATIENT VISIT TRACKING (12 MO.) No inpatient visits to display in this time frame [email or web address]
[2021-04-16] MEDS ORDERED: MELATONIN5 M1 SL (18:17)
[2021-04-16] MEDS ORDERED: TYLENOL325 MG PO (18:17)
[2021-04-16] MEDS ORDERED: ADVIL200 MG PO (18:17)
== END 2021-04-16 20:30 | disposition home or self-care (01) ==
LOC: ED 17:53
DX: B34.9 Viral infection, unspecified (principal); Z20.822 Contact with and (suspected) exposure to COVID-19; Z87.891 Personal history of nicotine dependence; Z79.899 Other long term (current) drug therapy
CPT/HCPCS: 99283; U0003